=== PATIENT | male | born 1955 | race Caucasian/White ===

== ENCOUNTER 2024-05-23 20:11 | Inpatient (IN) | payer MEDICARE, SELFPAY ==
[2024-05-23] VITALS (7 sets, daily range): BP systolic 121–151; BP diastolic 69–88; BMI 29.6; BMI 29.5
[2024-05-23 14:56] LABS: % Basophils 0.3 % (0-2); % Eosinophils 0.3 % (0-6); % Immature Granulocytes 0.4 % (0-0.5); % Lymphocytes 18.4 % (20.5-51.1); % Monocytes 11.5 % (1.7-9.3); % Neutrophils 69.1 % (42.2-75.2); Absolute Immature Granulocytes 0.1 10^3/uL (0-0.05); Absolute Lymphocytes 2.1 10^3/uL (1.2-3.4); Absolute Monocytes 1.3 10^3/uL (0.1-0.6); Hemoglobin 15.8 g/dL (13.0-18.0); Mean Corp Hgb Conc. 34.3 g/dL (33.0-37.0); Mean Corpuscular Hgb 28.7 pg (27.0-31.0); Mean Corpuscular Volume 83.6 fL (80.0-94.0); Mean Platelet Volume 8.9 fL (7.4-10.4); Nucleated Red Blood Cells % 0 % (-); Platelet Count 192 10^3/uL (130-400); Red Cell Dist. Width 13.3 % (11.5-14.5); White Blood Cell Count 11.6 10^3/uL (4.8-10.8)
[2024-05-23 14:57] LABS: Urine Albumin 2+ (Neg - Trace); Urine Bilirubin Negative (Negative); Urine Character Clear (Clear); Urine Color Yellow; Urine Glucose Negative (Negative); Urine Ketone 3+ (Negative); Urine Leukocyte 1+ (Negative); Urine Nitrite Negative (Negative); Urine Occult Blood 4+ (Negative); Urine Urobilinogen 1+ (Neg - 1+)
[2024-05-23 15:11] LABS: ALT (SGPT) 16 U/L (0-50); AST (SGOT) 22 U/L (17-59); Albumin 4.2 g/dl (3.5-5.0); Alkaline Phosphatase 73 U/L (38-126); Blood Urea Nitrogen 15 mg/dl (9-20); Calcium 9.5 mg/dl (8.4-10.2); Carbon Dioxide 27 mmol/L (22-30); Chloride 101 mmol/L (98-107); Glucose 102 mg/dl (70-99); Potassium 4.4 mmol/L (3.5-5.1); Sodium 137 mmol/L (135-145); Total Bilirubin 2.5 mg/dl (0.2-1.3); Total Protein 7.1 g/dl (6.3-8.2); eGFR > 60.00
[2024-05-23 15:15] LABS: Urine Bacteria Few (Negative)
[2024-05-23 15:16] LABS: Urine Mucus Few; Urine Squamous Cell 0-2 /LPF (Few)
[2024-05-23 15:18] LABS: Urine Red Blood Cell 60-70 /HPF (0-2)
--- NOTE | 2024-05-23 16:42 | ED.GENMED ---
History of Present Illness
General
Chief Complaint: Abdominal Symptoms
Source: patient
Exam Limitations: none
Time Seen by Provider: 05/23/24 16:20
Nursing documentation reviewed up to this point in time: agreed with
History of Present Illness
History of Present Illness:
pt is a 69 y/o M
h/o AAA repair
dvt/pe provoked, no longer AC
spontaneous PTX
kidney stnoes
prostate ca s/p prostatectomy
here from for multiple complaints
lower abd pain x 2 weeks, intermittent, feels a lot of pressure kelly with defecation and urination and some urgency of urination
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
he has still been able to eat and drink normally despite the pain, no change to appetite, no nausea/vomtiing, early satiety
he has noticed that the past 3 days he has had pleuritic L chest pain which is worse with exertion, and he feels some BINGHAM with minimal distances which is new
he has way da mild cough which he attributes to vaping and when he coughs it is very painful and nonproductive
no fever/chills, sore throat, nasal conogestion, headache
he has had DVT/significant PE years ago after knee surgery
anticoagulated for some time and then stopped and takes asa only
Past History
Past History
ED Past Medical History: Cancer (prostate) and Other (COPD, prostate cancer, pe post ortho surgery, kidney stones)
ED Past Surgical History: Cardiac (AAA repair May 2013.), Orthopedic (arthroscopic right knee surgery) and Other (Prostatectomy )
Social History
Tobacco: Smoker
Alcohol: Occasional
Drug: None
Personal:
Living: with family
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
Review of Systems
Review of Systems
Allergies reviewed?: Yes
All Other Systems: Not applicable
Phy Exam
Physical Exam
Physical Exam:
GENERAL: Alert , in no apparent distress
EYE: pupils equal and reactive
NECK: Supple
ENT: o/p clr, mmm.
CARDIAC: Regular rate and rhythm .no murmur
LUNGS: Clear breath sounds bilaterally, no acute respiratory distress, no wheezes/rales/rhonchi
pleuritic pain, splinting
ABDOMEN: Soft, nondistended; tender lower abdomen, not significant but mild to moderate no r/g, no cvat, normal bowel sounds
NEUROLOGICAL: Alert and oriented, no focal neuro deficits
SKIN: Warm and dry, skin intact.
MUSCULOSKELETAL: No edema, well perfused. neg trena's sign
PSYCH: Normal and appropriate interaction.
Course
Orders/Labs/Results
Orders:
Orders
05/23/24 14:26
ECG [Electrocardiogram (*1)] Urgent
Reason for Study: Shortness of Breath
05/23/24 14:27
EKG- Treatment ONCE
05/23/24 14:39
Complete Blood Count/With Diff Urgent
Comprehensive Metabolic Panel Urgent
Urinalysis Reflex To Culture Urgent
Date Specimen was Collected: 05/23/24
Time Specimen was Collected: 14:33
Urine Microscopic Reflex Cult Urgent
Urine Culture Urgent
MILLIE Source: U
Specimen Description:
Obtained by: Random
Date Specimen was Collected: 05/23/24
Time Specimen was Collected: 14:33
05/23/24 16:39
CT Pe/abd/pel W Urgent
Reason For Exam: pleuritic pain 2 days, BINGHAM, H/O PE
05/23/24 16:47
NT-proBNP Urgent
Troponin I Urgent
05/23/24 18:29
Azithromycin 500 mg/250 ml [Zithromax Infusion] 500 mg in 250 ml IV NOW
CefTRIAXone [Rocephin] 2,000 mg IV NOW STA
05/23/24 18:30
O2 Therapy [RESP] Urgent
Titrate/Wean O2 to maintain O2 sat greater than (%): 92
05/23/24 18:36
Sterile Water [Sterile Water For Injection] 20 ml .ROUTE .STK-MED
05/23/24 18:45
Sterile Water [Sterile Water For Injection] 20 ml IV ONCE
Abnormal Lab Results
05/23/24
14:39
WBC 11.6 H 10^3/uL
(4.8-10.8)
Abs Immat Gran (auto) 0.1 H 10^3/uL
(0-0.05)
Absolute Neuts (auto) 8.0 H 10^3/uL
(1.4-6.5)
Absolute Monos (auto) 1.3 H 10^3/uL
(0.1-0.6)
Lymphocytes % 18.4 L %
(20.5-51.1)
Monocytes % 11.5 H %
(1.7-9.3)
Glucose 102 H mg/dl
(70-99)
Total Bilirubin 2.5 H mg/dl
(0.2-1.3)
Urine Ketones 3+ A
(Negative)
Ur Occult Blood Reflex 4+ A
(Negative)
Leukocyte Esterase Rfl 1+ A
(Negative)
Urine RBC 60-70 A /HPF
(0-2)
Urine Bacteria (Reflex) Few A
(Negative)
Urine Albumin (Reflex) 2+ A
(Neg - Trace)
05/23/24 14:39
05/23/24 14:39
Vital Signs
Initial and Last Documented VS:
Initial Vital Signs
Temp Pulse Resp BP Pulse Ox
37.0 C 89 18 151/82 96
05/23/24 14:28 05/23/24 14:28 05/23/24 14:28 05/23/24 14:28 05/23/24 14:28
Last Documented Vital Signs
Temp Pulse Resp BP Pulse Ox
37.0 C 84 25 137/82 92
05/23/24 14:28 05/23/24 17:00 05/23/24 17:00 05/23/24 16:46 05/23/24 17:07
MDM/Problems Addressed
Differential Diagnosis Includes:
PE, pneumonia, pleural effusion, cancer, uti, kdiney stone, perf
MDM/Problems Addressed:
69 y/o M2 weeks intermittent b/l pelvic/lower abd pain, worse with defecation and urination, still able to do both
then 3 days of L sided pleuritic ches tpain, dyspnea, BINGHAM, cough
vapes
h/o prostate cancer removed previously
no fever
went to and sent in
has ,microscopic hematuria
pleurisy/pleuritic cp/splinting
h/o PE
not hypoxic initially
ct c/a/p
shows no PE
RUL and RLL pna
possible peritoneal carcinomatosis
prostate mass
R distal ureteral stone 3 mm no hydro
pulse ox down to 88% on ra
will admit
iv abx
urologist dr. hernandez aware
reqeustes:
PSA
npo after midnight
no heparin
if he goes into retention call dr hernandez for salgado
*Critical Care Note
Total Time (30-74mins, 75-104mins- exclusive of procedures): Not Applicable
ED Attending Note
-
Portions of this chart may have been created with voice recognition software.� Occasional wrong word or��sound alike� substitutions may have occurred due to the inherent limitations of voice recognition software.
Discharge Plan
Departure
Patient Disposition: Admit
Date of Disposition: 05/23/24
Time of Disposition: 18:30
Admit to: Med/Surg
Presentation/result/management discussed w/ accepting MD/DO: Hospitalist
Condition: Fair
Covid-19: Not Applicable
Discharge Problem:
Pneumonia, Pleurisy, Prostate mass, Kidney stone, UTI (urinary tract infection)
Prescriptions:
No Action
aspirin 81 MG tablet,chewable
81 mg PO DAILY Qty: 0 0RF
Referrals:
NONE,* [Family Provider] -
Interventions
Interventions:
*Risk Screen - Suicide Last Done: 05/23/24 14:29
*General Assessment Last Done: 05/23/24 14:29
*Neglect/Abuse Screening Last Done: 05/23/24 14:29
*ED COVID-19 Vaccine History Last Done: 05/23/24 14:29
LX-Vpvogd-Yekgcvjcsb Assessment Last Done: 05/23/24 17:06
Discharge Date and Time
Print Language: ARABIC
[2024-05-23 17:41] LABS: NT-proBNP 57.5 pg/ml; Troponin I < 0.012 ng/ml
[2024-05-23] MEDS: STERILE WATER FOR INJECTION 20 ML IV (18:39)
[2024-05-23] MEDS: ROCEPHIN 2000 MG IV (18:40)
[2024-05-23] MEDS: ZITHROMAX INFUSION 250 IV (18:40)
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
[2024-05-23 20:36] LABS: COVID-19 Antigen Negative (Negative)
[2024-05-23] MEDS: MYLICON 80 MG PO (21:49)
[2024-05-23 23:23] LABS: Procalcitonin 0.05 ng/ml (0.0-0.25)
--- NOTE | 2024-05-24 07:14 | W.PN.HOSP.TC ---
Today's Communication/Plan
-
NPO after midnight
SCDs only for DVT prophylaxis -- no Lovenox/Heparin Drip right now, as per urology
Continue to strain all urine and see whether patient is passing stone
Assessment / Plan
Assessment / Plan
Physical Exam
General: Not in acute distress
HEENT: Moist mucous membranes
Respiratory: Clear to Auscultation Bilaterally
Cardiac: S1/S2 and Regular Rhythm
GI: Positive bowel sounds. Soft. Nontender. No CVA tenderness. No suprapubic tenderness.
Musculoskeletal: No Cyanosis and No Edema
Neuro: AAO x 3
Assessment/Plan
Patient is a 69 y/o male with past medical history significant for prostate cancer status post prostatectomy in 2008 who presents to ED complaining of malaise, chest pain, abdominal pain, etc.
Prostate Cancer
- s/p robotic prostatectomy in 2008 (in [place]?). No adjuvant therapy per patient.
- 2 weeks of lower abdominal / pelvic symptoms.
- CT showed increased nodularity in prostate bed as well as evidence of peritoneal carcinomatosis.
- Urology evaluation for additional recommendations.
- Discussed case with urology, patient will need inpatient oncology evaluation
- Check PSA.
- Monitor for any new symptoms. evidence of urinary retention, etc.
Possible Pneumonia
Pleurisy/Pleuritic Chest Pain - RESOLVED
- Patient presented with new L chest pain, fatigue and malaise
- No change in cough, no fever, minimal leukocytosis without L shift.
- CT done in the ED shows ground glass opacities in the RIGHT upper and lower lobes (discomfort is on the L).
- CT showed no PE
- Continue antibiotics with ceftriaxone / doxycycline for now.
- Procalcitonin -- negative, flu negative, COVID negative.
- Follow for clinical changes / positive culture data / etc.
Right Ureteral Stone
- CT also shows 3mm distal R ureteral stone without apparent obstruction / hydro.
- UA with blood but does not suggest infection.
- Urology consulted as noted above -- patient will be taken by urology to operating room tomorrow if he does not pass stone
- Add tamsulosin. Continue to strain all urine.
- NPO after midnight for possible operating room tomorrow
- Patient is very active with no history of cardiac disease or DM, he is relatively low risk for surgery
- Levaquin added by urology; continue
h/o AAA s/p Repair
- Stable. CT shows no acute changes.
- Continue ASA
DVT Prophylaxis
h/o Provoked DVT
- SCDs. Per urology, no Lovenox right now.
Code Status: Full Code
Anticipated Discharge: > 48 hours
Subjective/Interval History
-
Date of Service: May 24, 2024
Patient was seen and examined. He denied any symptoms or complaints.
Objective Data
-
Labs:
Laboratory Results
05/24/24
06:00
WBC Pending
Hgb Pending
Hct Pending
Plt Count Pending
Sodium Pending
Potassium Pending
Chloride Pending
Carbon Dioxide Pending
BUN Pending
Creatinine Pending
Glucose Pending
Calcium Pending
Vital Signs:
Vital Signs
Temp Pulse Resp BP Pulse Ox
98.4 F 73 18 121/72 94
05/23/24 23:40 05/23/24 23:40 05/23/24 23:40 05/23/24 23:40 05/23/24 23:40
I&O
05/23/24 05/24/24 05/25/24
06:59 06:59 06:59
Output Total 200 / 200
Balance -200 / -200
--- NOTE | 2024-05-24 07:33 | CON.MD ---
Consultation - Medical
-
see dictated note
pt with hx of robotic prostatectomy in [place] in 2008- no real f/u since
had ct in 2019 showing recurrent mass in rectal fossa
no presents with SOB and CP- diagnosed with pneumonia
also c/o of urinary and bowel urgency and lower abd discomfort- had psa of [address] c/w enlarging mass in rectal fossa and possible carcinomatosis
3mm right uvj stone also noted without hydro
pt feels ok today
breathing is improving
still with some lower abd discomfort and urgency
urine clear
rectal exam reveals large- rock hard mass
plan
pt with stone and locally recurrent/likely met prostate cancer
continue pneumonia treatment
hold anticoagulants- paco hose/scd's for now
flomax and strain urine
start low rate ivf
if stone does not pass and cleared from med/anesth- plan would be for OR tomorrow for cysto/ureteroscopy/stent and bx of mass- then would start casodex if cleared with med onc (this sometimes can interfere with PET CT and if they feel this is
important in staging would delay)
needs oncology consult as well
[2024-05-24 08:00] VITALS: BP 127/80
[2024-05-24 08:05] LABS: Hematocrit 44.6 % (39.0-52.0); Hemoglobin 15.5 g/dL (13.0-18.0); Mean Corp Hgb Conc. 34.8 g/dL (33.0-37.0); Mean Corpuscular Hgb 28.7 pg (27.0-31.0); Mean Corpuscular Volume 82.6 fL (80.0-94.0); Platelet Count 203 10^3/uL (130-400); Red Cell Dist. Width 13.2 % (11.5-14.5); White Blood Cell Count 8.8 10^3/uL (4.8-10.8)
[2024-05-24] MEDS: FLOMAX PO (08:17)
[2024-05-24] MEDS: LOW STRENGTH ASPIRIN PO (08:17)
[2024-05-24] MEDS: VIBRAMYCIN PO (08:18)
[2024-05-24] MEDS: NSS IV (08:19)
[2024-05-24] MEDS: FLUSH (NSS) 2 FLUSH IV (08:22)
[2024-05-24] MEDS: NSS 1000 IV ×2 (08:27→23:12)
[2024-05-24] MEDS: FLOMAX 0.4 MG PO (08:28)
[2024-05-24] MEDS: VIBRAMYCIN 100 MG PO ×2 (08:28→19:40)
[2024-05-24] MEDS: LOW STRENGTH ASPIRIN 81 MG PO (08:28)
[2024-05-24 08:39] LABS: Blood Urea Nitrogen 15 mg/dl (9-20); Calcium 9.4 mg/dl (8.4-10.2); Carbon Dioxide 22 mmol/L (22-30); Chloride 103 mmol/L (98-107); Estimated Creatinine Clearance 98 ml/min; Glucose 103 mg/dl (70-99); Potassium 3.9 mmol/L (3.5-5.1); Sodium 137 mmol/L (135-145); eGFR > 60.00
[2024-05-24 16:00] VITALS: BP 139/70
[2024-05-24] MEDS: STERILE WATER FOR INJECTION 10 ML IV (17:10)
[2024-05-24] MEDS: ROCEPHIN 1000 MG IV (17:10)
[2024-05-24 20:14] LABS: Hepatitis C Antibody Negative (Negative)
[2024-05-25] VITALS (13 sets, daily range): BP systolic 110–146; BP diastolic 50–79; BMI 29.3
[2024-05-25] MEDS: NEOMYCIN ENEMA 1 BOTTLE RECTAL (05:09)
[2024-05-25] MEDS: LEVAQUIN 100 IV (07:30)
--- NOTE | 2024-05-25 07:48 | W.IMMPOSTOP ---
Surgical Immed Post Op Note
-
Primary Surgeon:
mary
Assisting Surgeon:
none
Pre-op Diagnosis:
right ureteral stone/pelvic mass- suspected recurrent prostate ca
Post-op Diagnosis:
same
Procedure Performed:
cysto- right ureteroscopy/laser litho and stent/pelvic mass bx
Anesthesia Type:
gen
Specimen / Cultures:
pelvic mass bx- stone
Estimated Blood Loss:
2cc
Complications:
none
Operative Findings:
no lower tract obstruction- although some distortion of trigone/bladder floor due to mass effect
right ureteroscopy performed and stone removed- stent placed
salgado placed
digitally guided transrectal bx of mass performed
from gu standpoint- can remove salgado tomorrow if urine clear
would discharge on flomax and tramadol
pt to call dr hernandez's office at time of discharge to schedule stent removal
would await oncology eval in terms of starting casodex now as it may interfere with PET CT if this is planned
[2024-05-25] MEDS: VIBRAMYCIN 100 MG PO ×2 (09:28→19:36)
[2024-05-25] MEDS: LOW STRENGTH ASPIRIN 81 MG PO (09:28)
[2024-05-25] MEDS: FLOMAX 0.4 MG PO (09:28)
[2024-05-25 10:40] LABS: % Basophils 0.2 % (0-2); % Eosinophils 0.1 % (0-6); % Immature Granulocytes 0.5 % (0-0.5); % Lymphocytes 9.8 % (20.5-51.1); % Monocytes 2.2 % (1.7-9.3); % Neutrophils 87.2 % (42.2-75.2); Absolute Lymphocytes 0.9 10^3/uL (1.2-3.4); Absolute Monocytes 0.2 10^3/uL (0.1-0.6); Absolute Neutrophils 7.6 10^3/uL (1.4-6.5); Hematocrit 43.8 % (39.0-52.0); Hemoglobin 14.8 g/dL (13.0-18.0); Mean Corp Hgb Conc. 33.8 g/dL (33.0-37.0); Mean Corpuscular Hgb 28.2 pg (27.0-31.0); Mean Corpuscular Volume 83.6 fL (80.0-94.0); Mean Platelet Volume 8.8 fL (7.4-10.4); Nucleated Red Blood Cells % 0 % (-); Platelet Count 216 10^3/uL (130-400); Red Blood Cell Count 5.24 10^6/uL (4.70-6.10); Red Cell Dist. Width 13.2 % (11.5-14.5); White Blood Cell Count 8.8 10^3/uL (4.8-10.8)
[2024-05-25 11:23] LABS: Blood Urea Nitrogen 16 mg/dl (9-20); Calcium 9.2 mg/dl (8.4-10.2); Carbon Dioxide 27 mmol/L (22-30); Chloride 104 mmol/L (98-107); Estimated Creatinine Clearance 88 ml/min; Glucose 115 mg/dl (70-99); Magnesium 2.1 mg/dl (1.6-2.3); Potassium 4.5 mmol/L (3.5-5.1); Sodium 137 mmol/L (135-145); eGFR > 60.00
--- NOTE | 2024-05-25 13:20 | W.PN.HOSP.TC ---
Today's Communication/Plan
-
Awaiting oncology input
Voiding trial tomorrow
Assessment / Plan
Assessment / Plan
Physical Exam
General: Not in acute distress
HEENT: Moist mucous membranes
Respiratory: Clear to Auscultation Bilaterally
Cardiac: S1/S2 and Regular Rhythm
GI: Positive bowel sounds. Soft. Nontender. No CVA tenderness. No suprapubic tenderness.
Musculoskeletal: No Cyanosis and No Edema
Neuro: AAO x 3
Assessment/Plan
Patient is a 69 y/o male with past medical history significant for prostate cancer status post prostatectomy in 2008 who presents to ED complaining of malaise, chest pain, abdominal pain, etc.
Right ureteral stone/pelvic mass- suspected recurrent prostate ca status post cysto- right ureteroscopy/laser litho and stent/pelvic mass biopsy - right ureteroscopy performed and stone removed - stent placed
- s/p robotic prostatectomy in 2008 (in [place]?). No adjuvant therapy per patient.
- 2 weeks of lower abdominal / pelvic symptoms.
- CT showed increased nodularity in prostate bed as well as evidence of peritoneal carcinomatosis.
- Urology evaluation for additional recommendations.
- Discussed case with urology, patient will need inpatient oncology evaluation, awaiting oncology evaluation -- need input in terms of starting casodex now as it may interfere with PET CT if this is planned
- right ureteroscopy performed and stone removed- stent placed
- Can remove Potts catheter tomorrow if urine is clear
- On discharge, discharge patient on Flomax and Tramadol
- At the time of discharge, patient will need to call Dr. Blair's office to schedule stent removal
- Will verify antibiotic regimen with urology at the time of discharge
Possible Pneumonia
Pleurisy/Pleuritic Chest Pain - RESOLVED
- Patient presented with new L chest pain, fatigue and malaise
- No change in cough, no fever, minimal leukocytosis without L shift.
- CT done in the ED shows ground glass opacities in the RIGHT upper and lower lobes (discomfort is on the L).
- CT showed no PE
- Continue antibiotics with ceftriaxone / doxycycline for now.
- Procalcitonin -- negative, flu negative, COVID negative.
- Follow for clinical changes / positive culture data / etc.
Right Ureteral Stone
- CT also shows 3mm distal R ureteral stone without apparent obstruction / hydro.
- UA with blood but does not suggest infection.
- Urology consulted as noted above -- patient was taken to OR, see above
h/o AAA s/p Repair
- Stable. CT shows no acute changes.
- Continue ASA
DVT Prophylaxis:
h/o Provoked DVT
- SCDs. Per urology, no Lovenox right now; can start Lovenox tomorrow.
Code Status: Full Code
Anticipated Discharge: 24 - 48 hours
Subjective/Interval History
-
Date of Service: May 25, 2024
Patient was seen and examined. He reported feeling good, denied any complaints.
Objective Data
-
Labs:
Laboratory Results
05/25/24
10:23
WBC 8.8
Hgb 14.8
Hct 43.8
Plt Count 216
Sodium 137
Potassium 4.5
Chloride 104
Carbon Dioxide 27
BUN 16
Creatinine 1.0
Glucose 115 H
Calcium 9.2
Vital Signs:
Vital Signs
Temp Pulse Resp BP Pulse Ox
98.6 F 69 16 134/78 94
05/25/24 11:09 05/25/24 11:09 05/25/24 11:09 05/25/24 11:09 05/25/24 11:09
I&O
05/24/24 05/25/24 05/26/24
06:59 06:59 06:59
Intake Total 100 / 100
Output Total 200 / 200 1450 / 1450 350 / 350
Balance -200 / -200 -1450 / -1450 -250 / -250
--- NOTE | 2024-05-25 13:33 | CON.ONC ---
Impression
Impression
- Soft tissue mass in prostate bed
- peritoneal nodularity, carcinomatosis?
- hx of localized prostate cancer s/p prostatectomy 2008
- hx of provoked PE
Plan
Plan
- clinical picture highly suspicious for prostate cancer recurrence in pelvis with soft tissue mass in prostate bed with at least mass effect on bladder and likely bowel. CT noted some nodularity in peritoneum possibly representing carcinomatosis.
check pelvic MRI to better characterize extent of local disease.
- PSA up to 64.9.
- s/p bx today. path from [facility] pending.
- CT chest and bone scan to complete staging and will defer PSMA PET unclear equivocal findings this way anti-androgen can be initiated now to start helping to relieve some of his symptoms and expedite starting ADT out-pt. will start Casodex 50 mg
daily.
- if truly no distant metastatic disease then can consider role of radiation in addition to hormone therapy.
- will continue to follow
Patient History
History of Present Illness
Patient is a 69y M with PMH significant for AAA s/p repair, localized prostate cancer s/p prostatectomy 2008, provoked PE 2013 on baby ASA ppx who presented to ED complaining of generalized fatigue, L chest pain and lower abdominal pain. Patient
states that he noted lower abdominal discomfort / perineal pressure, difficulty urinating and moving his bowels over past month. Ct A/P showed Lobular nodularity in the prostate bed has progressed compared to prior examination measuring 4.1 cm
transverse by 2.5 cm ( A CT in February 2020 noted 'Within the left surgical bed nonspecific enhancing soft tissue nodule measuring 21 x 16 mm. This was present on the a study in Dec 2018 at which time it was measuring 14 x [address] on this
admission also notes soft tissue stranding and nodularity of the omentum, the appearance of which is highly suspicious for peritoneal carcinomatosis. no bone lesions or other visceral disease. PSA markedly elevated at 64.9. Pt states that he was
initially complaint with his PSA checks after his surgery in 2008 however stopped after ~ 5 years because they were normal. Last in our system in 2012 was 0.5. Denies family hx of prostate, breast, pancreatic cancer. He underwent
cysto/ureteroscopy/stent and bx of mass today with Dr Blair, path pending.
Patient Medication
�Medication �Instructions �Recorded �Confirmed �Last Taken �Type
esomeprazole magnesium 40 mg 40 mg PO HS Gastrointestinal Issue 05/23/24 05/24/24 05/22/24 History
capsule,delayed release (Nexium)
aspirin 81 mg chewable tablet 81 mg PO HS Blood Clot 05/24/24 05/24/24 Unknown History
Prevention/Tx
Active Medications
Generic Name Dose Route Start Last Admin
Trade Name Freq PRN Reason Stop Dose Admin
Acetaminophen 650 mg 05/23/24 21:25
Acetaminophen 325 Mg Tablet PO 06/20/24 21:24
Q4HPRN PRN
Mild Pain / Temp > 101
Albuterol Sulfate 2.5 mg 05/23/24 21:25
Albuterol Nebs 2.5 Mg/3 Ml Ampul INH
R Q4HPRN PRN
SOB
Protocol
Aspirin 81 mg 05/24/24 08:00 05/25/24 09:28
Aspirin 81 Mg Chewable Tablet PO 06/21/24 07:59 81 mg
DAILY JEAN-PAUL Administration
Ceftriaxone Sodium 1,000 mg 05/24/24 18:00 05/24/24 17:10
Ceftriaxone 1000 Mg / 10 Ml Vial IV 1,000 mg
Q24H JEAN-PAUL Administration
Doxycycline Hyclate 100 mg 05/24/24 08:00 05/25/24 09:28
Doxycycline 100 Mg Capsule PO 100 mg
Q12 JEAN-PAUL Administration
Sodium Chloride 1,000 mls @ 80 mls/hr 05/24/24 07:45 05/24/24 23:12
Nss IV 1,000 mls
[id number] JEAN-PAUL Administration
Sodium Chloride 0 flush 05/23/24 22:00 05/24/24 08:22
Sodium Chloride 0.9% (Flush) Syringe IV 06/20/24 21:59 2 flush
PER PROTOCOL JEAN-PAUL Administration
Sterile Water 10 ml 05/24/24 18:00 05/24/24 17:10
Sterile Water For Injection 10 Ml Vial IV 06/21/24 17:59 10 ml
Q24H JEAN-PAUL Administration
Tamsulosin HCl 0.4 mg 05/24/24 08:00 05/25/24 09:28
Tamsulosin 0.4 Mg Capsule PO 06/21/24 07:59 0.4 mg
DAILY JEAN-PAUL Administration
Review of Systems
-
History Source: Patient
Constitutional: Denies Fever, Weight Loss or No Appetite
Respiratory: Denies Cough or Trouble Breathing
Cardiac: Denies Chest Pain
GI: Reports Constipated; Denies Abdominal Pain or Diarrhea
: Reports Difficulty Voiding and Dark Urine; Denies Bleeding
Musculoskeletal: Denies Joint Pain or Arthralgias
Neuro: Denies Dizzy, Headache or Weakness
Physical Exam
-
General: Well Developed, Well Nourished and No Apparent Distress
HEENT: Negative Jaundice
Cardiology: Normal Sinus Rhythm
Pulmonary: Clear
GI: Soft; Negative Distended
Musculoskeletal: No Clubbing and No Edema
Neurology: Non Focal
Labs
Lab Results
WBC 8.8 10^3/uL (4.8-10.8) 05/25/24 10:23
RBC 5.24 10^6/uL (4.70-6.10) 05/25/24 10:23
Hgb 14.8 g/dL (13.0-18.0) 05/25/24 10:23
Hct 43.8 % (39.0-52.0) 05/25/24 10:23
MCV 83.6 fL (80.0-94.0) 05/25/24 10:23
MCH 28.2 pg (27.0-31.0) 05/25/24 10:23
MCHC 33.8 g/dL (33.0-37.0) 05/25/24 10:23
RDW 13.2 % (11.5-14.5) 05/25/24 10:23
Plt Count 216 10^3/uL (130-400) 05/25/24 10:23
MPV 8.8 fL (7.4-10.4) 05/25/24 10:23
Abs Immat Gran (auto) 0.0 10^3/uL (0-0.05) 05/25/24 10:
Absolute Neuts (auto) 7.6 10^3/uL (1.4-6.5) H 05/25/24 10:23
Absolute Lymphs (auto) 0.9 10^3/uL (1.2-3.4) L 05/25/24 10:23
Absolute Monos (auto) 0.2 10^3/uL (0.1-0.6) 05/25/24 10:23
Absolute Eos (auto) 0.0 10^3/uL (0-0.7) 05/25/24 10:
Absolute Basos (auto) 0.0 10^3/uL (0-0.2) 05/25/24 10:23
Immature Gran % 0.5 % (0-0.5) 05/25/24 10:
Neutrophils % 87.2 % (42.2-75.2) H 05/25/24 10:
Lymphocytes % 9.8 % (20.5-51.1) L 05/25/24 10:23
Monocytes % 2.2 % (1.7-9.3) 05/25/24 10:
Eosinophils % 0.1 % (0-6) 05/25/24 10:
Basophils % 0.2 % (0-2) 05/25/24 10:23
Creatinine 1.0 mg/dL (0.7-1.3) 05/25/24 10:
Vital Signs
Vital Signs
Temp Pulse Resp BP Pulse Ox
98.6 F 69 16 134/78 94
05/25/24 11:09 05/25/24 11:09 05/25/24 11:09 05/25/24 11:09 05/25/24 11:09
[2024-05-25] MEDS: NSS 1000 IV (14:28)
[2024-05-25] MEDS: CASODEX 50 MG PO (14:29)
[2024-05-25] MEDS: STERILE WATER FOR INJECTION 10 ML IV (17:41)
[2024-05-25] MEDS: ROCEPHIN 1000 MG IV (17:41)
[2024-05-26 03:52] VITALS: BP 122/68
[2024-05-26 05:52] VITALS: BMI 29.5
[2024-05-26] MEDS: TYLENOL 650 MG PO (06:37)
--- NOTE | 2024-05-26 07:07 | W.PN.ONC2 ---
Today's Communication / Plan
-
Cont Casodex. Stable for D/C.
Impression
Impression
- Soft tissue mass in prostate bed
- peritoneal nodularity, carcinomatosis?
- hx of localized prostate cancer s/p prostatectomy 2008
- hx of provoked PE
Plan
Plan
- clinical picture highly suspicious for prostate cancer recurrence in pelvis with soft tissue mass in prostate bed with at least mass effect on bladder and likely bowel.
- MRI reviewed
- PSA up to 64.9.
- s/p bx 05/25. path from ST mass pending.
- CT chest and bone scan to complete staging and will defer PSMA PET unclear equivocal findings this way anti-androgen can be initiated now to start helping to relieve some of his symptoms and expedite starting ADT out-pt. Casodex 50 mg daily started
- if truly no distant metastatic disease then can consider role of radiation in addition to hormone therapy.
- Stable for D/C with outpt oncology F/U. 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
Subjective/Objective
Chief Complaint
ACS Heme Onc
Subjective
Feels well. Some right thigh pain improved with Tylenol.
Vital Signs:
Vital Signs
Temp Pulse Resp BP Pulse Ox
97.6 F 69 20 122/68 94
05/26/24 03:52 05/26/24 03:52 05/26/24 03:52 05/26/24 03:52 05/26/24 03:52
Lab Results:
Laboratory Data
WBC 8.8 10^3/uL (4.8-10.8) 05/25/24 10:23
Hgb 14.8 g/dL (13.0-18.0) 05/25/24 10:23
Plt Count 216 10^3/uL (130-400) 05/25/24 10:23
eGFR > 60.00 02/14/25 10:23
Physical Exam
HEENT: No Jaundice
Cardiology: S1 and S2
Pulmonary: Clear
GI: Soft
Extremities: No C/C/E
[2024-05-26 07:15] VITALS: BP 151/82
[2024-05-26] MEDS: FLOMAX 0.4 MG PO (08:21)
[2024-05-26] MEDS: VIBRAMYCIN 100 MG PO (08:21)
[2024-05-26] MEDS: CASODEX 50 MG PO (08:21)
[2024-05-26] MEDS: LOW STRENGTH ASPIRIN 81 MG PO (08:21)
[2024-05-26 09:53] LABS: % Basophils 0.2 % (0-2); % Eosinophils 0.1 % (0-6); % Immature Granulocytes 0.4 % (0-0.5); % Lymphocytes 18.6 % (20.5-51.1); % Monocytes 9.1 % (1.7-9.3); % Neutrophils 71.6 % (42.2-75.2); Absolute Immature Granulocytes 0.1 10^3/uL (0-0.05); Absolute Lymphocytes 2.2 10^3/uL (1.2-3.4); Absolute Monocytes 1.1 10^3/uL (0.1-0.6); Absolute Neutrophils 8.5 10^3/uL (1.4-6.5); Hematocrit 41.6 % (39.0-52.0); Hemoglobin 14.6 g/dL (13.0-18.0); Mean Corp Hgb Conc. 35.1 g/dL (33.0-37.0); Mean Corpuscular Volume 82.5 fL (80.0-94.0); Mean Platelet Volume 9.4 fL (7.4-10.4); Nucleated Red Blood Cells % 0 % (-); Platelet Count 248 10^3/uL (130-400); Red Blood Cell Count 5.04 10^6/uL (4.70-6.10); Red Cell Dist. Width 13.2 % (11.5-14.5); White Blood Cell Count 11.9 10^3/uL (4.8-10.8)
[2024-05-26 10:13] LABS: Blood Urea Nitrogen 17 mg/dl (9-20); Calcium 9.8 mg/dl (8.4-10.2); Carbon Dioxide 24 mmol/L (22-30); Chloride 105 mmol/L (98-107); Estimated Creatinine Clearance 98 ml/min; Glucose 108 mg/dl (70-99); Sodium 138 mmol/L (135-145); eGFR > 60.00
--- NOTE | 2024-05-26 10:37 | W.PN.URO.CBU ---
Today's Communication / Plan
-
remove folety encourage fluids
Assessment / Plan
-
stable from bx and stone extraction remove foilet encourage fluids and if voidng then home today if ok with hospitalist
Diagnosis
-
Date of Service: May 26, 2024
-
Patient Diagnosis:stone and recurrent prostate cancer
Post Op Day:
Subjective
-
feels well
Objective
-
Vital Signs
Temp Pulse Resp BP Pulse Ox
97.5 F 74 17 151/82 96
05/26/24 07:15 05/26/24 07:15 05/26/24 07:15 05/26/24 07:15 05/26/24 07:15
Intake and Output
05/25/24 05/26/24 05/27/24
06:59 06:59 06:59
Intake Total 100 / 100
Output Total 1450 / 1450 2300 / 2300
Balance -1450 / -1450 -2200 / -2200
Intake:
IV fluids (Total) 100 / 100
NORMOSOL 100 / 100
Output:
Urine, Potts 2300 / 2300
Urine, Voided 1450 / 1450
Other:
Number of approximated MODERATE 2
amounts of urine
Laboratory Results
05/26/24 08:45
05/26/24 08:45
Review of Systems
-
: Bleeding
Physical Exam
-
General - well developed, well nourished, no acute distress
Chest - clear bilaterally
Abdomen - soft, non-tender, positive bowel sounds, no CVAT, no incisional pain or distention
Genitalia - normal
Rectal - normal
Skin - warm & dry with no rash
Neuro - AOx3, no motor deficits
Extremities - no clubbing, no cyanosis, no edema
Incision - clean, dry
Dressing - clean, dry, intact
Care Review
Data Reviewed
Discussed with: Nursing
CT Scan: Image Pers Reviewed
[2024-05-26 11:34] VITALS: BP 144/79
--- NOTE | 2024-05-26 12:15 | W.PN.HOSP.TC ---
Today's Communication/Plan
-
Discharge today
Assessment / Plan
Assessment / Plan
Physical Exam
General: Not in acute distress
HEENT: Moist mucous membranes
Respiratory: Clear to Auscultation Bilaterally
Cardiac: S1/S2 and Regular Rhythm
GI: Positive bowel sounds. Soft. Nontender. No CVA tenderness. No suprapubic tenderness.
Musculoskeletal: No Cyanosis and No Edema
Neuro: AAO x 3
Assessment/Plan
Patient is a 69 y/o male with past medical history significant for prostate cancer status post prostatectomy in 2008 who presents to ED complaining of malaise, chest pain, abdominal pain, etc.
Right ureteral stone/pelvic mass- suspected recurrent prostate ca status post cysto- right ureteroscopy/laser litho and stent/pelvic mass biopsy - right ureteroscopy performed and stone removed - stent placed
- s/p robotic prostatectomy in 2008 (in [place]?). No adjuvant therapy per patient.
- 2 weeks of lower abdominal / pelvic symptoms.
- CT showed increased nodularity in prostate bed as well as evidence of peritoneal carcinomatosis.
- Urology evaluation for additional recommendations.
- Discussed case with urology, patient needed oncology evaluation, oncology recommendations appreciated
- Casodex 50 mg daily started -- continue Casodex
- Right ureteroscopy performed and stone removed- stent placed
- Potts catheter to be removed today
- On discharge, discharge patient on Flomax and Tramadol
- At the time of discharge, patient will need to call Dr. Blair's office to schedule stent removal
- I discussed with urologist Dr Ortega today and he is okay with the following antibiotic regimen: Cefdinir 300 mg Q12H for another 7 days (which would cover UTI and pneumonia) and Doxycycline
Possible Pneumonia
Pleurisy/Pleuritic Chest Pain - RESOLVED
- Patient presented with new L chest pain, fatigue and malaise - all resolved
- No change in cough, no fever, minimal leukocytosis without L shift.
- CT done in the ED shows ground glass opacities in the RIGHT upper and lower lobes (discomfort is on the L).
- CT showed no PE
- Continue antibiotics with ceftriaxone / doxycycline for now. discharge him on Cefdinir 300 mg Q12H for another 7 days (which would cover possible UTI and pneumonia) and Doxycycline
Right Ureteral Stone
- CT also shows 3mm distal R ureteral stone without apparent obstruction / hydro.
- UA with blood but does not suggest infection.
- Urology consulted as noted above -- patient was taken to OR, see above
h/o AAA s/p Repair
- Stable. CT shows no acute changes.
- Continue ASA
DVT Prophylaxis:
h/o Provoked DVT
- SCDs. Per urology, no Lovenox right now; can start Lovenox tomorrow.
Code Status: Full Code
More than 30 minutes spent in discharge including
Final examination of the patient
Summarizing hospital stay
Instructions for continuing care to all relevant caregivers
Preparation of discharge records, prescriptions, and referral forms
Total time spent (in minutes): 39
Anticipated Discharge: Today
Subjective/Interval History
-
Date of Service: May 26, 2024
Patient was seen and examined. He denied any fever, chest pain, shortness of breath, abdominal pain or any other complaints. He would be happy to go home today.
Objective Data
-
Labs:
Laboratory Results
05/26/24
08:45
WBC 11.9 H
Hgb 14.6
Hct 41.6
Plt Count 248
Sodium 138
Potassium 4.0
Chloride 105
Carbon Dioxide 24
BUN 17
Creatinine 0.9
Glucose 108 H
Calcium 9.8
Vital Signs:
Vital Signs
Temp Pulse Resp BP Pulse Ox
97.7 F 69 18 144/79 96
05/26/24 11:34 05/26/24 11:34 05/26/24 11:34 05/26/24 11:34 05/26/24 11:34
I&O
05/25/24 05/26/24 05/27/24
06:59 06:59 06:59
Intake Total 100 / 100
Output Total 1450 / 1450 2300 / 2300
Balance -1450 / -1450 -2200 / -2200
--- NOTE | 2024-05-26 14:04 | CM ---
Alert awake oriented pt lives with Verna in 2 story home with 1 steps to enter and 14 to bed/bathroom. He is independent with all ADLs. Offered VN he declined . He said he is ready for dc today . His dgt will drive him home today.
No adaptive devices.
Pharmacy [facility] [place]
PCP will be Dr Rey .
PLAN Home no needs
== END 2024-05-26 14:57 | disposition home or self-care (01) | DRG 659 ==
LOC: 3 WEST ACU 20:11
PROVIDERS: Physician Assistant; Student in an Organized Health Care Education/Training Program; ADMITTING PHYSICIAN Hospitalist; ATTENDING PHYSICIAN Hospitalist; CONSULT PHYSICIAN Specialist; EMERGENCY PHYSICIAN Emergency Medicine; OTHER PHYSICIAN Internal Medicine Hematology & Oncology
PROC: 0T768DZ Dilation of Right Ureter with Intraluminal Device, Via Natural or Artificial Opening Endoscopic (ICD-10-PCS; 2024-05-25)
PROC: 0VB07ZX Excision of Prostate, Via Natural or Artificial Opening, Diagnostic (ICD-10-PCS; 2024-05-25)
PROC: 0TC68ZZ Extirpation of Matter from Right Ureter, Via Natural or Artificial Opening Endoscopic (ICD-10-PCS; 2024-05-25)
DX: N20.1 Calculus of ureter (principal); J18.9 Pneumonia, unspecified organism; J44.0 Chronic obstructive pulmonary disease with (acute) lower respiratory infection; C61 Malignant neoplasm of prostate; Z85.46 Personal history of malignant neoplasm of prostate; F17.290 Nicotine dependence, other tobacco product, uncomplicated; Z80.1 Family history of malignant neoplasm of trachea, bronchus and lung; R09.1 Pleurisy; Z79.82 Long term (current) use of aspirin; Z86.711 Personal history of pulmonary embolism; Z86.79 Personal history of other diseases of the circulatory system; Z90.79 Acquired absence of other genital organ(s); Z11.52 Encounter for screening for COVID-19
CPT/HCPCS: 88305; 71275; 72197; 74018; 74177; 76000; 80048; 80053; 81003; 81015; 82365; 83735; 83880; 84145; 84484; 85025; 85027; 86803; 87086; 87502; 87811; 88341; 88342; 93005; 96365; 96375; 99285; A9575; C1758; C2617; G0103; Q9967

== ENCOUNTER → 2024-05-28 10:26 | Outpatient (REF) | payer MEDICARE, SELFPAY | LOC: RAD 10:26 | PROVIDERS: ATTENDING PHYSICIAN Internal Medicine Hematology & Oncology; FAMILY PHYSICIAN Internal Medicine | DX: C61 Malignant neoplasm of prostate (principal) | CPT/HCPCS: 78306; A9503 ==

== ENCOUNTER 2024-06-22 06:22 | Day surgery (SDC) | payer MEDICARE, SELFPAY | END 2024-06-22 16:41 | disposition home or self-care (01) | LOC: GI 06:22 | PROVIDERS: ATTENDING PHYSICIAN Internal Medicine Gastroenterology | DX: Z12.11 Encounter for screening for malignant neoplasm of colon (principal); K64.8 Other hemorrhoids; N40.0 Benign prostatic hyperplasia without lower urinary tract symptoms; D12.5 Benign neoplasm of sigmoid colon | CPT/HCPCS: 45385; 88305 ==